=== PATIENT | male | born 1945 | race Two or more races ===

== ENCOUNTER → 2024-08-08 | Outpatient (CLI) | payer OTHER, MEDICAID, SELFPAY ==
--- NOTE | 2024-08-08 11:30 | XR_ITS ---
Examination: Retroperitoneal ultrasound, complete Technique: Multiple high resolution grayscale images of the retroperitoneum obtained, including kidneys and bladder. Exam date and time:August 08, 2024 1130 hours INDICATIONS: Frequent urination beginning 2 years ago FINDINGS: Right kidney 10.4 x 6.1 x 6.3 cm cortex 1.5 cm Left kidney 11.9 x 7.2 x 7.5 cm cortex 1.7 cm Moderate renal parenchymal scar formation No hydronephrosis No bladder mass or bladder calculi Bladder prevoid findings 76 cc postvoid volume 12 cc Marked prostatomegaly 159.9 cc volume with cystic lesions IMPRESSION: Small kidneys with bilateral renal cortical thinning Moderate bilateral renal parenchymal scar formation Massive prostatomegaly
== END | disposition home or self-care (01) ==
LOC: CDIM 11:06
PROVIDERS: PCP Physician Assistant; Referring Provider Nurse Practitioner Family; Visit Provider Nurse Practitioner Family
DX: N28.89 Other specified disorders of kidney and ureter (principal); N40.0 Benign prostatic hyperplasia without lower urinary tract symptoms
CPT/HCPCS: 76770